=== PATIENT | male | born 1945 | race Caucasian/White ===

== ENCOUNTER 2016-05-26 10:20 | Emergency (ER) | payer SELFPAY ==
[~2016-05-26] VITALS: Ht 167.6 cm; Wt 103.5 kg
[2016-05-26 10:29] VITALS: Ht 167.6 cm; Wt 103.5 kg
[2016-05-26] MEDS ORDERED: SOD CHLORIDE 0.9% 1,000 ML IV STA (13:17)
--- NOTE | 2016-05-26 13:41 | ERD ---
ER Documentation Chief Complaint Date/Time DATE: 05/26/16 TIME: 13:38 Chief Complaint pt bib self with c/o rectal bleeding x 3 days, HPI Patient is a 71-year-old male who reports rectal bleeding for the last 3 days. He states that he has blood in the toilet when he goes to the bathroom. He cannot tell me if it is mixed with stool or if it is by itself. He says it is dark not bright red. There are no clots. He is not having any significant abdominal pain, fever, nausea or vomiting. He is never experienced this before. He does not feel dizzy or lightheaded, denies any chest pain, shortness of breath, abnormal bruising, or rashes. Nothing seems to make this better or worse. He is not on any blood thinners. He also denies any dysuria, hematuria, flank or back pain. And the remainder of the systems are negative. ROS All systems reviewed and are negative except as per history of present illness. Medications Home Meds Reported Medications Aspirin* (Aspirin*) 325 Mg Tablet, 300 MG PO DAILY, TAB 05/26/16 Bisoprolol Fumarate* (Zebeta*) 5 Mg Tablet, 2.5 MG PO DAILY, TAB 05/26/16 Enalapril Maleate* (Enalapril Maleate*) 10 Mg Tablet, 10 MG PO DAILY, TAB 05/26/16 Atorvastatin Calcium* (Atorvastatin Calcium*) 20 Mg Tablet, 20 MG PO QHS, #30 TAB 05/26/16 Calcium Citrate/Vitamin D (Citracal-Vitamin D 200 MG-250) 1 Each Tablet, 1 EACH PO BID, TAB 05/26/16 Sitagliptin Phos/Metformin HCl (Janumet 50-1,000 mg Tablet) 1 Each Tablet, 1 EACH PO BID, TAB 05/26/16 Allergies Allergies: Coded Allergies: No Known Allergy (Unverified , 05/26/16) PMhx/Soc Medical and Surgical Hx: pt denies Surgical Hx History of Surgery: No Anesthesia Reaction: No Hx Neurological Disorder: No Hx Respiratory Disorders: No Hx Cardiac Disorders: Yes (HTN, HLD) Hx Psychiatric Problems: No Hx Miscellaneous Medical Probl: Yes (DMII-oral) Hx Alcohol Use: No Hx Substance Use: No Hx Tobacco Use: No Smoking Status: Never smoker FmHx Family History: coronary disease, diabetes Physical Exam Vitals Vital Signs Date Time Temp Pulse Resp B/P Pulse Ox O2 Delivery O2 Flow Rate FiO2 05/26/16 15:00 74 20 176/77 99 Room Air 05/26/16 14:34 67 20 165/90 99 Room Air 05/26/16 13:23 Nasal Cannula 05/26/16 10:29 97.9 80 16 146/67 96 Physical Exam Const: [] Well-developed well-nourished male sitting on the bed in no acute distress Head: Atraumatic normocephalic Eyes: Normal Conjunctiva pink ENT: Normal External Ears, Nose and Mouth. Neck: Full range of motion..~ No meningismus. Resp: Clear to auscultation bilaterally Cardio: Regular rate and rhythm, no murmurs Abd: Soft, non tender, non distended. Normal bowel sounds, no masses, rebound , or guarding. Rectal exam revealed no masses however there was stool with some bright red blood on it Skin: No petechiae or rashes Back: No midline or flank tenderness Ext: No cyanosis, or edema Neur: Awake and alert oriented 3 with a GCS of 15 Psych: Normal Mood and Affect Result Diagram: 05/26/16 1413 05/26/16 1400 Results 24 hrs Laboratory Tests Test 05/26/16 14:00 05/26/16 14:13 Activated Partial Thromboplast Time 23.5Sec Alanine Aminotransferase (ALT/SGPT) 24IU/L Albumin 3.8g/dl Albumin/Globulin Ratio 1.35 Alkaline Phosphatase 81IU/L Anion Gap 16 Aspartate Amino Transf (AST/SGOT) 18IU/L Blood Urea Nitrogen 15mg/dl Calcium Level 8.9mg/dl Carbon Dioxide Level 26mmol/L Chloride Level 107mmol/L Creatinine 0.75mg/dl Direct Bilirubin 0.00mg/dl Globulin 2.80g/dl Glucose Level 107mg/dl INR International Normalized Ratio 0.96 Indirect Bilirubin 0.2mg/dl Potassium Level 4.3mmol/L Prothrombin Time 12.8Sec Prothrombin Time Ratio 1.0 Sodium Level 145mmol/L Total Bilirubin 0.2mg/dl Total Protein 6.6g/dl Basophils # 0.010^3/ul Basophils % 0.5% Blood Morphology Comment Eosinophils # 0.310^3/ul Eosinophils % 3.5% Hematocrit 41.1% Hemoglobin 13.7g/dl Lymphocytes # 2.210^3/ul Lymphocytes % 26.9% Mean Corpuscular Hemoglobin 28.5pg Mean Corpuscular Hemoglobin Concent 33.2g/dl Mean Corpuscular Volume 85.7fl Mean Platelet Volume 8.5fl Monocytes # 0.710^3/ul Monocytes % 8.6% Neutrophils # 5.010^3/ul Neutrophils % 60.5% Nucleated Red Blood Cells # 0.010^3/ul Nucleated Red Blood Cells % 0.0/100WBC Platelet Count 48536^3/UL Red Blood Count 4.7910^6/ul Red Cell Distribution Width 13.9% White Blood Count 8.310^3/ul Current Medications Medications (Trade) Dose Ordered Sig/Ivan Route PRN Reason Start Time Stop Time Status Last Admin Dose Admin Sodium Chloride (NS) 1,000 ml @ 1,000 mls/hr Q1H STAT IV 05/26/16 13:17 05/26/16 14:16 DC Procedures/MDM Differential includes but is not limited to hemorrhoids, rectal fissure, polyps , nonspecific lower GI bleeding, cancer CT of the abdomen and pelvis did not reveal any obvious causes of his rectal bleeding, no masses. 1607: Patient appears hemodynamically stable. He has not had any more rectal bleeding here. He is stable for discharge home with outpatient follow-up and evaluation. Departure Diagnosis: Primary Impression: Rectal bleeding Additional Impression: Hypertension Hypertension type: essential hypertension Qualified Code: I10 - Essential hypertension Condition: Stable Patient Instructions: Evaluating and Treating Rectal Bleeding, Rectal Bleed, Stable Referrals: ERIC TROY MD Additional Instructions: Please call Dr. Norman and set up an appointment with him for further evaluation of your rectal bleeding. You may continue to have some bleeding but it should slow down and stop over the next 1-2 days. Regardless you should still see Dr. Troy for further evaluation. Return to the emergency department for any new or worsening symptoms. TERESA BUENO May 26, 2016 13:41
[2016-05-26] MEDS ORDERED: CALC-143 PO (14:16)
[2016-05-26] MEDS ORDERED: ATOR20TA38 PO (14:16)
[2016-05-26] MEDS ORDERED: SITA1TAB5 PO (14:16)
[2016-05-26] MEDS ORDERED: ENAL10TA PO (14:17)
[2016-05-26] MEDS ORDERED: BISO5TAB24 PO (14:19)
[2016-05-26] MEDS ORDERED: ASPI325T4 PO (14:20)
--- NOTE | 2016-05-26 14:35 | RADRPT ---
PROCEDURE: CT Abdomen and Pelvis without contrast. CLINICAL INDICATION: Abdominal pain, rectal bleeding TECHNIQUE: CT scan of the abdomen and pelvis without contrast was performed on a multidetector hig h-resolution CT scanner. Coronal and sagittal reformatted images were obtained from the [facility] e images. Images were reviewed on a high-resolution PACS workstation. The total exam CTDI equals 20. 9 mGy and the total exam DLP equals 1324 mGy-cm. COMPARISON: None. FINDINGS: CT abdomen: The lung bases are clear. The heart size is normal. No pericardial effusion identified. The liver demonstrates normal size and density. No liver mass identified. The gallbladder is unremarkable. There is no intrahepatic or extrahepatic biliary dilatation. The spleen is normal in size. No focal splenic abnormality identified. No gross abnormality of the stomach is identified. The pancreas is unremarkable. The adrenal glands appear normal. The kidneys are unremarkable. There is no evidence of renal mass, renal calculi or hydronephrosis. The aorta is of normal caliber. Aortic vascular calcifications are present. No adenopathy identified. The bowel and mesentery are unremarkable. The appendix is visualized and appears normal. CT pelvis: The pelvic organs are normal. The pelvic sidewalls and inguinal regions are clear. The sigmoid colon and rectum are unremarkable. No adenopathy, free fluid or inflammatory change identified. The osseous structures are remarkable for moderate degenerative spondylosis of the spine. No osteolytic or osteoblastic lesion is detected. IMPRESSION: 1. No mass, lymphadenopathy, or focal acute inflammatory process is identified. 2. Subtle haziness in the mesenteric fat around the superior mesenteric artery with scattered mildl y prominent lymph nodes which are not pathologic by size criteria. 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 3. Mild atherosclerotic peripheral vascular disease. RPTAT: QQ .Matthew Gaona MD, Date Time Electronically viewed and signed by .Matthew Gaona MD, on 05/26/2016 14:35 .M/
[2016-05-26 14:51] LABS: INR 0.96; PROTIME 12.8 Sec (12.2-14.2)
[2016-05-26 14:52] LABS: ALBUMIN 3.8 g/dl (3.3-4.9); POTASSIUM 4.3 mmol/L (3.5-5.1)
[2016-05-26 14:57] LABS: ALBUMIN/GLOBULIN RATIO 1.35; BILIRUBIN,INDIRECT 0.2 mg/dl (0-1.1); BILIRUBIN,TOTAL 0.2 mg/dl (0.2-1.3); CALCIUM 8.9 mg/dl (8.4-10.2); CREATININE 0.75 mg/dl (0.61-1.24); PARTIAL THROMBOPLASTIN TIME 23.5 Sec (25.0-35.0); TOTAL PROTEIN 6.6 g/dl (6.1-8.1)
[2016-05-26 14:59] LABS: BASOPHILS % 0.5 % (0.0-2.0); EOSINOPHILS # 0.3 10^3/ul (0.0-0.5); EOSINOPHILS % 3.5 % (0.0-7.0); HEMATOCRIT 41.1 % (42.0-52.0); HEMOGLOBIN 13.7 g/dl (14.0-18.0); LYMPHOCYTES # 2.2 10^3/ul (0.8-2.9); LYMPHOCYTES % 26.9 % (15.0-51.0); MEAN CORPUSCULAR HEMOGLOBIN 28.5 pg (29.0-33.0); MEAN CORPUSCULAR HGB CONC 33.2 g/dl (32.0-37.0); MEAN CORPUSCULAR VOLUME 85.7 fl (82.0-101.0); MEAN PLATELET VOLUME 8.5 fl (7.4-10.4); MONOCYTE # 0.7 10^3/ul (0.3-0.9); MONOCYTES % 8.6 % (0.0-11.0); NEUTROPHILS % 60.5 % (39.0-77.0); PLATELET COUNT 227 10^3/UL (140-440); RED BLOOD COUNT 4.79 10^6/ul (4.70-6.10); RED CELL DISTRIBUTION WIDTH 13.9 % (11.5-14.5); UNCORRECTED WBC 8.3 10^3/ul (4.8-10.8); WHITE BLOOD COUNT 8.3 10^3/ul (4.8-10.8)
[2016-05-26 15:23] LABS: CONDITION 1
[2016-05-26 16:00] VITALS: BP 167/62; PULSE 70; RESP 20
[2016-05-26] MEDS ORDERED: DOCU-144 PO (16:11)
[2016-05-26] MEDS ORDERED: HYDR25SU23 PR (16:12)
== END 2016-05-26 16:31 | disposition home or self-care (01) ==
LOC: E/R 10:20
DX: K62.5 Hemorrhage of anus and rectum (principal); I10 Essential (primary) hypertension; E11.9 Type 2 diabetes mellitus without complications; Z79.82 Long term (current) use of aspirin; Z79.84 Long term (current) use of oral hypoglycemic drugs
CPT/HCPCS: 74176; 80053; 85025; 85610; 85730; 86850; 86900; 86901; 93005; 99285; J7030